=== PATIENT | male | born 1935 | race Caucasian/White ===

== ENCOUNTER 2020-09-28 06:31 | Day surgery (SDC) | payer OTHER ==
[2020-08-25 09:08] VITALS: BMI 26.7
[~2020-09-28 06:31] MED LIST: LACTATED RINGERS 1,000 ML IV SCH
[2020-09-28 07:19] LABS: Glucose,Whole Blood 89 mg/dL (75-99)
[2020-09-28 07:23] VITALS: TEMP 98.1
[2020-09-28] MEDS ORDERED: PROPOFOL 10 MG/ML 20 ML VIAL IV ONE (07:48)
--- NOTE | 2020-09-28 08:33 | P.PCN ---
Date of Procedure: 09/28/20 Description of Procedure: BRIEF HISTORY: Patient is a 85-year-old male presenting for outpatient colonoscopy for evaluation of change in bowel habits. Patient reports last colonoscopy 20 years ago. He reports recent issues with gas, bloating and change in bowel habits. PROCEDURE PERFORMED: Colonoscopy with biopsy and gold probe ablation. PREOPERATIVE DIAGNOSIS: Change in bowel habits, last colonoscopy 20 years ago. ESTIMATED BLOOD LOSS: Minimal. IV sedation per Anesthesia. PROCEDURE: After informed consent was obtained, the patient, was brought into the endoscopy unit. IV sedation was administered by Anesthesia under continuous monitoring. Digital rectal examination was normal. Initially the Olympus CF-190 flexible video colonoscope was then inserted in the rectum, gradually advanced into the cecum without any difficulty. Careful examination was performed as the scope was gradually being withdrawn. Ileocecal valve and the appendiceal orifice were visualized and appeared normal. Prep was excellent. Mucosa of the cecum, ascending colon, transverse colon, descending colon, sigmoid colon, and rectum appeared normal, with numerous small and large mouth diverticula noted in the left colon. Random biopsies taken of the right left colon in the setting of c hange in bowel habits. 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 Retroflexion was performed in the rectum and no lesions were seen, low grade internal hemorrhoids. The patient tolerated the procedure well. IMPRESSION: Severe left colonic diverticulosis. 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 Otherwise normal-appearing colon from rectum to cecum with random biopsies taken of the right and left colon in the setting of altered bowel function. RECOMMENDATIONS: Findings of this examination were discussed with the patient and his family. Okay to resume diet. Okay to resume Eliquis tomorrow and other medications today. Await pathology from biopsies. Follow up in primary care physician office as previously scheduled.
[2020-09-28 09:10] VITALS: BP 153/73; PULSE 59; RESP 20
== END 2020-09-28 09:13 | disposition home or self-care (01) ==
LOC: ORWHC2ENDO 06:31
PROVIDERS: ATTEND Internal Medicine
DX: Q27.33 Arteriovenous malformation of digestive system vessel (principal); K57.30 Diverticulosis of large intestine without perforation or abscess without bleeding; R19.4 Change in bowel habit; R14.0 Abdominal distension (gaseous); I10 Essential (primary) hypertension; E78.5 Hyperlipidemia, unspecified; I48.91 Unspecified atrial fibrillation; I25.2 Old myocardial infarction; E11.9 Type 2 diabetes mellitus without complications; Z87.891 Personal history of nicotine dependence; Z79.01 Long term (current) use of anticoagulants; Z79.82 Long term (current) use of aspirin; Z79.899 Other long term (current) drug therapy; Z88.0 Allergy status to penicillin
CPT/HCPCS: 88305; 45380; 45388; J2704

== ENCOUNTER 2021-07-21 16:44 | Emergency (ER) | payer OTHER ==
[2021-07-21 17:57] VITALS: TEMP 98
[2021-07-21 18:29] LABS: Appearance,Urine Clear (Clear); Bacteria,Urine Few /hpf; Bilirubin,Urine Negative (Negative); Blood,Urine Small (Negative); Color,Urine Yellow; Glucose,Urine (UA) Negative (Negative); Ketones,Urine Negative (Negative); Leukocyte Esterase,Urine Large (Negative); Mucus,Urine Rare /hpf; Nitrite,Urine Negative (Negative); Protein,Urine Negative (Negative); RBC,Urine 4 /hpf (0-5); Specific Gravity,Urine 1.011 (1.001-1.035); Urobilinogen,Urine <2.0 mg/dL (<2.0); WBC,Urine 74 /hpf (0-5)
[2021-07-21] MEDS ORDERED: LEVOFLOXACIN 500 MG TAB PO STA (19:12)
--- NOTE | 2021-07-21 19:16 | ED ---
General Adult HPI - General Chief complaint: Urogenital Stated complaint: Urogenital Time Seen by Provider: 07/21/21 18:46 Source: patient, RN notes reviewed, old records reviewed Mode of arrival: ambulatory Limitations: no limitations - History of Present Illness Initial comments: I evaluated the patient when he was placed in a room. Patient is an 86-year-old male with past medical history remarkable for atrial fibrillation, CVA, diabetes, hypertension, [place] who presents emergency Department over concern for testicular swelling as well as scrotal pain. He states this is been ongoing since he had a cystoscopy done by urology a few weeks ago. He denies any fevers, chills, penile discharge. His no history of STI's. Denies any history of abdominal pain, nausea, vomiting. His no history of urinary stones. Denies any hematuria. His no chest pain, shortness of breath. He states that his testicles will intermittently become swollen, however there currently not that way now. States the pain is relieved with support of his bilateral testicles. States the right is somewhat worse than the left. His no tenderness, palpation of the testicles. He otherwise has no acute complaints. He is not followed up with urology since the scope. He does have a history of prostate disease. Denies any worsening urinary retention. - Related Data Home Medications Medication Instructions Recorded Confirmed Aspirin [Adult Low Dose Aspirin EC] 81 mg PO DAILY 08/25/20 09/28/20 Atorvastatin [Lipitor] 20 mg PO DAILY 08/25/20 09/28/20 Cholecalciferol [Vitamin D3 (25 5,000 unit PO DAILY 08/25/20 09/28/20 Mcg = 1000 Iu)] Cyanocobalamin (Vitamin B-12) 5,000 mcg PO DAILY 08/25/20 09/28/20 [Vitamin B-12] Enalapril Maleate 25 mg PO DAILY 08/25/20 09/28/20 Famotidine [Pepcid] 20 mg PO DAILY PRN 08/25/20 09/28/20 Fluticasone Nasal [place] [Flonase 1 spray EA NOSTRIL DAILY PRN 08/25/20 09/28/20 Nasal [place]] Magnesium 400 mg PO DAILY 08/25/20 09/28/20 Terbinafine 1% Cream [LamISIL] 1 applic TOPICAL DAILY PRN 08/25/20 09/28/20 Zinc 50 mg PO DAILY 08/25/20 09/28/20 Apixaban [Eliquis] 2.5 mg PO BID 09/22/20 09/28/20 Previous Rx's Medication Instructions Recorded Acetaminophen [Tylenol Extra 500 mg PO Q6HR 7 Days #28 tablet 07/21/21 Strength] levoFLOXacin 500 mg PO DAILY 10 Days #10 tab 07/21/21 Allergies Allergy/AdvReac Type Severity Reaction Status Date / Time Penicillins Allergy Swelling Verified 09/28/20 06:56 Review of Systems ROS Statement: Those systems with pertinent positive or pertinent negative responses have been documented in the HPI. Review of Systems: CONST: Denies fever EYES: Denies blurry vision ENT: Denies nasal congestion C/V: Denies Chest pain RESP: Denies shortness of breath GI: Denies abdominal pain : Endorses scrotal pain for multiple weeks, right worse than left SKIN: Denies rash. MSK: Denies joint pain. NEURO: Denies headache ROS Other: All systems not noted in ROS Statement are negative. Past Medical History Past Medical History: Atrial Fibrillation, CVA/TIA, Diabetes Mellitus, Hyperlipidemia, Hypertension, Myocardial Infarction ([place]), Prostate Disorder Additional Past Medical History / Comment(s): diet controlled diabetes , states occasional blood in urine since prostate surgery in Jun, states he has a lot of "gas". Last Myocardial Infarction Date:: 2004 History of Any Multi-Drug Resistant Organisms: None Reported Past Surgical History: Cholecystectomy, Heart Catheterization, Prostate Surgery, Tonsillectomy Additional Past Surgical History / Comment(s): laser prostate surgery June 2020. Past Anesthesia/Blood Transfusion Reactions: No Reported Reaction Past Psychological History: No Psychological Hx Reported Smoking Status: Former smoker Past Alcohol Use History: Rare Past Drug Use History: None Reported General Exam - General Exam Comments Initial Comments: General: Appears in no acute distress. HEAD: Normal with no signs of head trauma. EYES: EOMI ENT: Hearing grossly intact RESPIRATORY: No increased work of breathing. C/V: Peripheral pulses 2+ and intact throughout. ABD: Abd is soft, nontender, nondistended EXT: Normal range of motion, no obvious deformity SKIN: No rashes or lesions observed on exposed skin. NEURO: Alert and oriented 4. : Performed in the presence of a staff member. No penile tenderness palpation and no discharge at the urethral meatus. No testicular swelling. Mild testicular pain on palpation that is relieved with elevation of the testicles and support. No skin changes. Limitations: no limitations Course Vital Signs 07/21/21 07/21/21 17:55 19:22 Temperature 98.0 F Pulse Rate 71 80 Respiratory 19 16 Rate O2 Sat by Pulse 98 95 Oximetry Medical Decision Making - Medical Decision Making Based on the patient's presentation and physical exam, I'm concerned for possible UTI versus epididymitis. I do not have concern for torsion at this time, as the patient's pain is relieved with elevation of the testicles and his mild nature and not severe. He recently had a cystoscopy which could explain his symptoms. He denies any worsening urinary retention or urinary complaints at this time. Therefore urinalysis will be obtained. He declines analgesia at this time. Urinalysis is consistent for UTI with a small amount of flecks Of blood present. His large amount leukoesterase and sent for WBCs. With findings consistent for UTI as well as epididymitis, did discuss the diagnosis with the patient. We will start him on levofloxacin and given an initial dose here in the department. I do want him to follow up with urology. I do not believe that he requires any further imaging or labs at this time. He was in agreement this plan. I will provide the patient with a prescription for levofloxacin daily for 7 days 500 mg. I instructed the patient to follow up with their PCP in the next 3 days. I provided contact information for follow up with urology Dr Thompson. I explained that the patient should return to the emergency department if they experience any worsening symptoms. Strict return precautions were discussed with the patient. The patient expressed understanding of these instructions. I answered all questions that the patient had. The patient was discharged home in fair condition with their prescriptions and follow up information. - Lab Data Lab Results 07/21/21 Range/Units 18:03 Urine Color Yellow Urine Appearance Clear (Clear) Urine pH 6.0 (5.0-8.0) Ur Specific [place] 1.011 (1.001-1.035) Urine Protein Negative (Negative) Urine Glucose (UA) Negative (Negative) Urine Ketones Negative (Negative) Urine Blood Small H (Negative) Urine Nitrite Negative (Negative) Urine Bilirubin Negative (Negative) Urine Urobilinogen <2.0 (<2.0) mg/dL Ur Leukocyte Esterase Large H (Negative) Urine RBC 4 (0-5) /hpf Urine WBC 74 H (0-5) /hpf Urine Bacteria Few H (None) /hpf Urine Mucus Rare H (None) /hpf Disposition Clinical Impression: Acute epididymitis, UTI (urinary tract infection) Disposition: HOME SELF-CARE Condition: Fair Instructions (If sedation given, give patient instructions): Epididymitis (ED), Urinary Tract Infection in Men (ED) Prescriptions: levoFLOXacin 500 mg PO DAILY 10 Days #10 tab Acetaminophen [Tylenol Extra Strength] 500 mg PO Q6HR 7 Days #28 tablet Is patient prescribed a controlled substance at d/c from ED?: No Referrals: Sherlyn Rowe MD [Primary Care Provider] - 1-2 days Kapil Thompson MD [STAFF PHYSICIAN] - 1-2 days
[2021-07-21 19:23] VITALS: PULSE 80; RESP 16
== END 2021-07-21 19:22 | disposition home or self-care (01) ==
LOC: EC 16:44
DX: N45.1 Epididymitis (principal); N39.0 Urinary tract infection, site not specified; E11.9 Type 2 diabetes mellitus without complications; I10 Essential (primary) hypertension; I25.2 Old myocardial infarction; I48.91 Unspecified atrial fibrillation; E78.5 Hyperlipidemia, unspecified; Z79.01 Long term (current) use of anticoagulants; Z79.82 Long term (current) use of aspirin; Z79.899 Other long term (current) drug therapy; Z88.0 Allergy status to penicillin; Z87.891 Personal history of nicotine dependence; Z86.73 Personal history of transient ischemic attack (TIA), and cerebral infarction without residual deficits; Z90.49 Acquired absence of other specified parts of digestive tract
CPT/HCPCS: 81001; 87086; 99284